=== PATIENT | female | born 1955 | race Caucasian/White ===

== ENCOUNTER → 2017-04-29 | Outpatient (CLI) | payer OTHER ==
--- NOTE | 2017-05-02 08:48 | MM ---
Reason for exam: additional evaluation requested from prior study. Last mammogram was performed 1 year and 1 month ago. History: Patient is postmenopausal and has history of breast cancer at age 59. Family history of breast cancer in daughter at age 43 and breast cancer in aunt. Malignant US biopsy breast VAD LT of the left breast, June 13, 2014. Lumpectomy of the left breast, 2013. Radiation therapy of the left breast, 2013. Physical Findings: Nurse did not find any significant physical abnormalities on exam. MG 3D Diag Mammo W/Cad CELESTINO Bilateral CC and MLO view(s) were taken. Prior study comparison: April 05, 2016, bilateral MG diagnostic mammo w CAD CELESTINO. November 07, 2015, left breast MG 3d diag mammo w/cad LT. There are scattered fibroglandular densities. Left lumpectomy changes. No significant new findings when compared with previous films. These results were verbally communicated with the patient and result sheet given to the patient on 04/29/17. ASSESSMENT: Benign, BI-RAD 2 RECOMMENDATION: Follow-up diagnostic mammogram of both breasts in 1 year.
== END | disposition home or self-care (01) ==
LOC: RADMAMWWP 13:03
PROVIDERS: ATTEND Family Medicine
DX: Z08 Encounter for follow-up examination after completed treatment for malignant neoplasm (principal); Z85.3 Personal history of malignant neoplasm of breast
CPT/HCPCS: G0204; G0279

== ENCOUNTER → 2018-07-12 | Outpatient (CLI) | payer MEDICARE, OTHER ==
--- NOTE | 2018-07-12 14:10 | MM ---
Reason for exam: additional evaluation requested from prior study. Last mammogram was performed 1 year and 2 months ago. History: Patient is postmenopausal and has history of breast cancer at age 59. Family history of breast cancer in daughter at age 43 and breast cancer in aunt. Malignant US biopsy breast VAD LT of the left breast, June 13, 2014. Lumpectomy of the left breast, 2013. Radiation therapy of the left breast, 2013. Physical Findings: Nurse did not find any significant physical abnormalities on exam. MG 3D Diag Mammo W/Cad CELESTINO Bilateral CC and MLO view(s) were taken. Prior study comparison: April 29, 2017, bilateral MG 3d diag mammo w/cad CELESTINO. April 05, 2016, bilateral MG diagnostic mammo w CAD CELESTINO. There are scattered fibroglandular densities. Post surgical and post therapy change left breast. Axillary clips are present. Large lumpectomy scar remains on the left. Some increasing fat necrosis calcifications medially on the left. These results were verbally communicated with the patient and result sheet given to the patient on 07/12/18. ASSESSMENT: Benign, BI-RAD 2 RECOMMENDATION: Follow-up diagnostic mammogram of both breasts in 1 year.
== END ==
LOC: RADMAMWWP 12:43
PROVIDERS: ATTEND Family Medicine
DX: Z08 Encounter for follow-up examination after completed treatment for malignant neoplasm (principal); Z85.3 Personal history of malignant neoplasm of breast
CPT/HCPCS: 77066; G0279; 77062

== ENCOUNTER → 2019-08-15 | Outpatient (CLI) | payer MEDICARE, OTHER ==
--- NOTE | 2019-08-15 13:09 | MM ---
Reason for exam: additional evaluation requested from prior study. Last mammogram was performed 1 year and 1 month ago. History: Patient is postmenopausal and has history of breast cancer at age 59. Family history of breast cancer in daughter at age 43 and breast cancer in aunt. Malignant US biopsy breast VAD LT of the left breast, June 13, 2014. Lumpectomy of the left breast, 2013. Radiation therapy of the left breast, 2013. Physical Findings: Nurse did not find any significant physical abnormalities on exam. MG Diagnostic Mammo w CAD CELESTINO Bilateral CC and MLO view(s) were taken. CC with magnification, ML with magnification, XCCL, and ML view(s) were taken of the left breast. Prior study comparison: July 12, 2018, bilateral MG 3d diag mammo w/cad CELESTINO. April 29, 2017, bilateral MG 3d diag mammo w/cad CELESTINO. There are scattered fibroglandular densities. There is a new 4mm group of calcifications in the upper inner quadrant at middle depth. On magnification views these appear heterogeneout. These do not layer on the lateral. Stereotactic biopsy recommended. Left seroma is smaller than 2015 and is at the post surgical site. These results were verbally communicated with the patient and result sheet given to the patient on 08/15/19. ASSESSMENT: Suspicious, BI-RAD 4 RECOMMENDATION: Stereotactic core biopsy of the left breast. Called Dr. Elliott's office with mammographic findings and has scheduled an appointment for the patient for 09/13/19 at 1:[address] Ramirez. PRELIMINARY REPORT CALLED AND FAXED TO DR. RAMIREZ ON 08/15/19.
== END | disposition home or self-care (01) ==
LOC: RADMAMWWP 10:51
PROVIDERS: ATTEND Family Medicine
DX: Z08 Encounter for follow-up examination after completed treatment for malignant neoplasm (principal); Z85.3 Personal history of malignant neoplasm of breast
CPT/HCPCS: 77066

== ENCOUNTER → 2019-10-11 | Day surgery (SDC) | payer MEDICARE, OTHER ==
[2019-10-11 11:10] VITALS: BP 97/61; PULSE 74; RESP 16; TEMP 97.8
--- NOTE | 2019-10-11 12:17 | MM ---
EXAMINATION TYPE: MG stereo VAD BX LT DATE OF EXAM: 10/11/2019 COMPARISON: Diagnostic left breast mammogram dated 08/15/2019 CLINICAL HISTORY: Indeterminate calcifications in the central outer left breast for which stereotactic guided biopsy was recommended. TECHNIQUE: Stereotactic guided core biopsy of left breast. FINDINGS: The procedure of stereotactic guided core biopsy was explained to the patient. Benefits, alternatives, and risks were discussed. An informed consent was then obtained. Preprocedural timeout was performed. The shortness pathway for biopsy was chosen. Shortness pathway was CC from below approach. Preprocedural localization images were obtained and a 4 mm group of calcifications within the lateral central left breast was demonstrated. Coordinates were calculated. Subsequently 10 cc of lidocaine without epinephrine was utilized to anesthetize the skin and deeper subcutaneous soft tissues. The needle was advanced to the appropriate depth. Prefire images were obtained ensuring appropriate location. Postfire injection of 10 cc of lidocaine with epinephrine was utilized to anesthetize the site of biopsy. A vacuum assisted biopsy gun was used to obtain 10 core samples. The patient tolerated the procedure well without any immediate complication. The patient was kept in the radiology department for short stay after the procedure and then discharged home in stable condition. Targeted calcifications are identified in specimen mammogram. Post biopsy mammogram shows the T-shaped biopsy marker to appear slightly caudal (approximately 1.3 cm marked on the postprocedure LM) relative to the targeted area of concern on the preprocedure images. IMPRESSION: SUCCESSFUL, UNCOMPLICATED STEREOTACTIC GUIDED CORE BIOPSY OF AN INTERMEDIATE SUSPICION A 3 MM GROUP OF CALCULATIONS WITHIN THE LATERAL CENTRAL LEFT BREAST, FULL PATHOLOGY RESULTS TO FOLLOW. Pathology Results: High Risk LEFT BREAST LESION, NEEDLE CORE BIOPSIES: Focal fat necrosis with hemosiderin laden macrophages in a background of fibroadenomatous hyperplasia. Fibrocystic spectrum changes including intraductal papillomatosis. Negative for residual malignant neoplasm. Recommendation Surgical consult of the left breast. Intraductal papillomatosis. MTDD
== END ==
LOC: RADMAMWWP 09:19
PROVIDERS: ATTEND Surgery
DX: D24.2 Benign neoplasm of left breast (principal); N60.12 Diffuse cystic mastopathy of left breast
CPT/HCPCS: 88305; 19081; A4648; J2001

== ENCOUNTER → 2021-03-12 | Outpatient (CLI) | payer MEDICARE, OTHER ==
[2021-03-12 15:04] LABS: Basophils # (A) 0.04 X 10*3/uL (0.00-0.10); Basophils % (A) 0.4 %; Eosinophils # (A) 0.21 X 10*3/uL (0.04-0.35); Eosinophils % (A) 2.3 %; HCT 43.8 % (37.2-46.3); HGB 13.3 g/dL (12.0-15.0); Lymphocytes # (A) 2.08 X 10*3/uL (0.90-5.00); Lymphocytes % (A) 22.9 %; MCH 29.5 pg (27.0-32.0); MCHC 30.4 g/dL (32.0-37.0); MCV 97.1 fL (80.0-97.0); Mean Platelet Volume 11.3 fL (9.5-12.2); Monocytes # (A) 0.61 X 10*3/uL (0.20-1.00); Monocytes % (A) 6.7 %; Neutrophils # (A) 6.09 X 10*3/uL (1.80-7.70); Neutrophils % (A) 67.3 %; Platelet Count 336 X 10*3/uL (140-440); RBC 4.51 X 10*6/uL (4.10-5.20); RDW 13.9 % (11.5-14.5); WBC 9.07 X 10*3/uL (4.50-10.00)
[2021-03-13 16:31] LABS: African American GFR (CKD) 103.2 (60.0-200.0); Albumin 4.2 g/dL (3.80-4.90); Albumin/Globulin Ratio 1.56 (1.60-3.17); Anion Gap 15.3 mmol/L (4.00-12.00); BUN/Creat Ratio 25.71 Ratio (12.00-20.00); Calcium 9.9 mg/dL (8.7-10.3); Carbon Dioxide 19.7 mmol/L (21.6-31.8); Chol/HDL Ratio 2.73; Globulin 2.7 g/dL (1.6-3.3); LDL Cholesterol,Calculated 64.8 mg/dL (0.0-131.0); Total Bilirubin 0.3 mg/dL (0.2-1.2); Total Protein 6.9 g/dL (6.2-8.2); VLDL Calculation 32.2 mg/dL (5.00-40.00)
== END | disposition home or self-care (01) ==
LOC: LABWHC1 09:51
PROVIDERS: ATTEND Family Medicine
DX: E78.2 Mixed hyperlipidemia (principal); G89.29 Other chronic pain; M54.5 Low back pain; Z82.62 Family history of osteoporosis
CPT/HCPCS: 36415; 80053; 80061; 84443; 85025

== ENCOUNTER → 2021-05-20 | Outpatient (CLI) | payer MEDICARE, OTHER ==
--- NOTE | 2021-05-21 08:48 | US ---
EXAMINATION TYPE: US transvaginal DATE OF EXAM: 05/20/2021 COMPARISON: NONE CLINICAL HISTORY: 66-year-old female N95.0 POSTMENOPAUSAL BLEEDING. Pt states 2 episodes of passing c lots approximately 1 month ago/ pt post menopausal, not on HRT's TECHNIQUE: Transvaginal (TV). Transvaginal sonographic images of the pelvis were acquired. Pt did n ot prep to fill bladder, opted to perform transvaginal vs. drinking to fill bladder Date of LMP: age 47 FINDINGS: EXAM MEASUREMENTS: Uterus: 4.5 x 2.5 x 4.0 cm Endometrial Stripe: 0.4 cm 1. Uterus: Retroverted 2. Endometrium: Fluid within canal= 1.6 x 0.5 x 1.7 cm showing irregular borders to endo 3. Right Ovary: Obscured by overlying bowel gas 4. Left Ovary: Obscured by overlying bowel gas 5. Bilateral Adnexa: wnl 6. Posterior cul-de-sac: wnl IMPRESSION: 1. Fluid distending the uterine cavity by up to 1.7 cm. The margins of the endometrium appears somewh at irregular. However, no avinash endometrial thickening is seen. Consider direct inspection or samplin g. 2. Correlate to exclude the possibility of cervical stenosis. 3. Neither ovary could be visualized.
== END | disposition home or self-care (01) ==
LOC: RADUSWWP 15:50
PROVIDERS: ATTEND Obstetrics & Gynecology
DX: N95.0 Postmenopausal bleeding (principal); Z78.0 Asymptomatic menopausal state
CPT/HCPCS: 76830

== ENCOUNTER → 2021-09-07 | Outpatient (CLI) | payer MEDICARE, OTHER ==
--- NOTE | 2021-09-07 08:57 | XR ---
EXAMINATION TYPE: XR foot complete RT DATE OF EXAM: 09/07/2021 COMPARISON: None HISTORY: Foreign body whole glass foot pain second third metatarsal region TECHNIQUE: 3 view right foot FINDINGS: There is a radiopaque foreign body between the first and second distal metatarsals identifi ed on the AP view. No additional radiopaque foreign bodies are evident. No acute fracture or dislocation is evident. Joint spaces appear preserved. Soft tissues are otherwis e unremarkable. IMPRESSION: 1. Radiopaque foreign body between first and second distal metatarsals.
--- NOTE | 2021-09-08 12:08 | MM ---
Reason for exam: screening (asymptomatic). Last mammogram was performed 2 years and 1 month ago. History: Patient is postmenopausal, has history of high-risk lesion on a previous biopsy at age 64, and has history of breast cancer at age 59. Family history of breast cancer in daughter at age 43 and breast cancer in aunt. High risk MG stereo VAD BX LT of the left breast, October 11, 2019. Malignant US biopsy breast VAD LT of the left breast, June 13, 2014. Lumpectomy of the left breast, 2013. Radiation therapy of the left breast, 2013. Took hormonal contraceptives for 4 years. Physical Findings: A clinical breast exam by your physician is recommended on an annual basis and results should be correlated with mammographic findings. MG 3D Screening Mammo W/Cad Bilateral CC and MLO view(s) were taken. Prior study comparison: August 15, 2019, bilateral MG diagnostic mammo w CAD CELESTINO. July 12, 2018, bilateral MG 3d diag mammo w/cad CELESTINO. There are scattered fibroglandular densities. Finding #1: There is stable or decrease in size 30 mm circumscribed architectural distortion in the upper inner quadrant, posterior position of the left breast. Finding #2: There are typically benign round calcifications in both breasts. There is no discrete abnormality. ASSESSMENT: Benign, BI-RAD 2 RECOMMENDATION: Routine screening mammogram of both breasts in 1 year.
== END | disposition home or self-care (01) ==
LOC: RADMAMWWP 07:22
PROVIDERS: ATTEND Internal Medicine
DX: Z12.31 Encounter for screening mammogram for malignant neoplasm of breast (principal); Z80.3 Family history of malignant neoplasm of breast; Z85.3 Personal history of malignant neoplasm of breast; Z78.0 Asymptomatic menopausal state; S91.341A Puncture wound with foreign body, right foot, initial encounter
CPT/HCPCS: 77063; 77067

== ENCOUNTER 2021-10-13 14:47 | Emergency (ER) | payer MEDICARE, OTHER ==
[2021-10-13 15:02] VITALS: RESP 18
--- NOTE | 2021-10-13 15:26 | ED ---
General Adult HPI - General Chief complaint: Arrhythmia/Palpitations Stated complaint: Irregular heart rate-Sent by [facility] Time Seen by Provider: 10/13/21 15:07 Source: patient, RN notes reviewed Mode of arrival: ambulatory Limitations: no limitations - History of Present Illness Initial comments: Patient is a pleasant 66-year-old female presenting to the emergency department with concern for irregular heartbeat. Patient was seen at office and was told she needed to be evaluated possibly for atrial fibrillation. Patient denies any palpitations. Patient denies any chest pain or dyspnea. Patient states this was a routine visit and did not have any complaints and so has no complaints. Patient does take an aspirin daily. - Related Data Home Medications Medication Instructions Recorded Confirmed Hydrocodone/Acetaminophen 1 tab PO QID 10/08/14 10/13/21 [Hydrocodone/Acetaminophen 10-325] Multivitamins, Thera [Multivitamin 1 tab PO DAILY 09/21/19 10/13/21 (formulary)] Simvastatin [Zocor] 20 mg PO DAILY 09/21/19 10/13/21 Aspirin 81 mg PO DAILY 10/13/21 10/13/21 Allergies Allergy/AdvReac Type Severity Reaction Status Date / Time cefaclor [From Ceclor] Allergy Rash/Hives Verified 10/13/21 16:04 doxycycline Allergy Rash/Hives Verified 10/13/21 16:04 doxycycline hyclate Allergy Rash/Hives Verified 10/13/21 16:04 [From Vibra-Tabs] fluconazole [From Diflucan] Allergy Swelling Verified 10/13/21 16:04 Penicillins Allergy Anaphylaxis Verified 10/13/21 16:04 Sulfa (Sulfonamide Allergy Anaphylaxis Verified 10/13/21 16:04 Antibiotics) Review of Systems ROS Statement: Those systems with pertinent positive or pertinent negative responses have been documented in the HPI. ROS Other: All systems not noted in ROS Statement are negative. Constitutional: Denies: fever Eyes: Denies: eye pain ENT: Denies: ear pain Respiratory: Denies: cough Cardiovascular: Denies: chest pain, palpitations Endocrine: Denies: fatigue Gastrointestinal: Denies: abdominal pain Genitourinary: Denies: dysuria Musculoskeletal: Denies: back pain Skin: Denies: rash Neurological: Denies: weakness Past Medical History Past Medical History: Asthma, Cancer, COPD, GERD/Reflux, Hyperlipidemia Additional Past Medical History / Comment(s): LT BREAST CANCER DX JUL 2014? PT STATES HAS HAD 33 RADIATION TXS. HIATAL HERNIA History of Any Multi-Drug Resistant Organisms: None Reported Past Surgical History: Bladder Surgery, Breast Surgery, Cholecystectomy, Hernia Repair, Orthopedic Surgery, Tonsillectomy, Tubal Ligation Additional Past Surgical History / Comment(s): LT BREAST BIOPSY. COLONOSCOPY. EGD. LT FOOT SURGERY. current broken left foot Past Anesthesia/Blood Transfusion Reactions: No Reported Reaction Past Psychological History: Anxiety, Depression Smoking Status: Former smoker Past Alcohol Use History: Rare Past Drug Use History: None Reported - Past Family History Mother Family Medical History: Cancer General Exam Limitations: no limitations General appearance: alert, in no apparent distress Head exam: Present: normocephalic Eye exam: Present: normal appearance Neck exam: Present: normal inspection Respiratory exam: Present: normal lung sounds bilaterally Cardiovascular Exam: Present: regular rate, normal rhythm Expanded Peripheral pulses: 2+: Radial (R), Radial (L) GI/Abdominal exam: Present: soft. Absent: distended, tenderness Extremities exam: Present: normal inspection. Absent: pedal edema, calf tenderness Neurological exam: Present: alert Psychiatric exam: Present: normal affect, normal mood Skin exam: Present: normal color Course Vital Signs 10/13/21 10/13/21 14:58 18:00 Temperature 98.1 F 97.6 F Pulse Rate 56 L 61 Respiratory 18 18 Rate Blood Pressure 113/70 134/79 O2 Sat by Pulse 98 99 Oximetry EKG Findings - EKG Comments: EKG Findings:: Sinus rhythm with a rate of 81. MI 154. QRS 80. QT 368. QTC 427. Left axis. Normal QRS. No acute ST change. Medical Decision Making - Medical Decision Making Patient is frustrated and refuses further care and wants to leave. I did talk with patient. Patient remains in normal sinus rhythm. It is advised to talk to cardiology prior to discharge for potential anticoagulation and follow-up. Despite this patient refuses. Patient states she has been told this previously only when she is at the doctor's office. Patient is made aware that she should see cardiology and should follow-up with her doctor. - Lab Data Result diagrams: 10/13/21 15:30 10/13/21 15:30 Lab Results 10/13/21 10/13/21 10/13/21 Range/Units 15:30 15:30 15:30 WBC 10.2 (3.8-10.6) k/uL RBC 4.27 (3.80-5.40) m/uL Hgb 13.5 (11.4-16.0) gm/dL Hct 41.4 (34.0-46.0) % MCV 97.1 (80.0-100.0) fL MCH 31.7 (25.0-35.0) pg MCHC 32.6 (31.0-37.0) g/dL RDW 13.3 (11.5-15.5) % Plt Count 278 (150-450) k/uL MPV 8.5 Neutrophils % 67 % Lymphocytes % 23 % Monocytes % 6 % Eosinophils % 2 % Basophils % 0 % Neutrophils # 6.9 (1.3-7.7) k/uL Lymphocytes # 2.3 (1.0-4.8) k/uL Monocytes # 0.6 (0-1.0) k/uL Eosinophils # 0.2 (0-0.7) k/uL Basophils # 0.0 (0-0.2) k/uL PT 10.2 (9.0-12.0) sec INR 0.9 (<1.2) APTT 23.9 (22.0-30.0) sec Sodium 141 (137-145) mmol/L Potassium 4.0 (3.5-5.1) mmol/L Chloride 104 (98-107) mmol/L Carbon Dioxide 26 (22-30) mmol/L Anion Gap 11 mmol/L BUN 24 H (7-17) mg/dL Creatinine 0.70 (0.52-1.04) mg/dL Est GFR (CKD-EPI)AfAm >90 (>60 ml/min/1.73 sqM) Est GFR (CKD-EPI)NonAf 89 (>60 ml/min/1.73 sqM) Glucose 102 H (74-99) mg/dL Calcium 9.4 (8.4-10.2) mg/dL Magnesium 1.9 (1.6-2.3) mg/dL Total Bilirubin 0.4 (0.2-1.3) mg/dL AST 26 (14-36) U/L ALT 21 (4-34) U/L Alkaline Phosphatase 124 (38-126) U/L Troponin I (0.000-0.034) ng/mL Total Protein 7.1 (6.3-8.2) g/dL Albumin 3.9 (3.5-5.0) g/dL TSH 1.520 (0.465-4.680) mIU/L Free T4 1.02 (0.78-2.19) ng/dL Free T3 pg/mL 4.7 (2.8-5.3) pg/ml 10/13/21 Range/Units 15:30 WBC (3.8-10.6) k/uL RBC (3.80-5.40) m/uL Hgb (11.4-16.0) gm/dL Hct (34.0-46.0) % MCV (80.0-100.0) fL MCH (25.0-35.0) pg MCHC (31.0-37.0) g/dL RDW (11.5-15.5) % Plt Count (150-450) k/uL MPV Neutrophils % % Lymphocytes % % Monocytes % % Eosinophils % % Basophils % % Neutrophils # (1.3-7.7) k/uL Lymphocytes # (1.0-4.8) k/uL Monocytes # (0-1.0) k/uL Eosinophils # (0-0.7) k/uL Basophils # (0-0.2) k/uL PT (9.0-12.0) sec INR (<1.2) APTT (22.0-30.0) sec Sodium (137-145) mmol/L Potassium (3.5-5.1) mmol/L Chloride (98-107) mmol/L Carbon Dioxide (22-30) mmol/L Anion Gap mmol/L BUN (7-17) mg/dL Creatinine (0.52-1.04) mg/dL Est GFR (CKD-EPI)AfAm (>60 ml/min/1.73 sqM) Est GFR (CKD-EPI)NonAf (>60 ml/min/1.73 sqM) Glucose (74-99) mg/dL Calcium (8.4-10.2) mg/dL Magnesium (1.6-2.3) mg/dL Total Bilirubin (0.2-1.3) mg/dL AST (14-36) U/L ALT (4-34) U/L Alkaline Phosphatase (38-126) U/L Troponin I <0.012 (0.000-0.034) ng/mL Total Protein (6.3-8.2) g/dL Albumin (3.5-5.0) g/dL TSH (0.465-4.680) mIU/L Free T4 (0.78-2.19) ng/dL Free T3 pg/mL (2.8-5.3) pg/ml Disposition Clinical Impression: Dysrhythmia Disposition: Left Against Medical Advice Instructions (If sedation given, give patient instructions): A-fib (Atrial Fibrillation) (ED), Heart Palpitations (ED) Additional Instructions: please follow-up tomorrow with primary care physician and recruiter specialist. You're leaving AGAINST MEDICAL ADVICE. He will need further evaluation and possibly fu rther treatment regarding her treatment. Feel free to return to emergency department for any concerns or worsening symptoms. Is patient prescribed a controlled substance at d/c from ED?: No Referrals: [facility] [Primary Care Provider] - 1-2 days Tremaine Antonio MD [STAFF PHYSICIAN] - 1-2 days Time of Disposition: 18:18
[2021-10-13 15:59] LABS: Basophils % (A) 0 %; Eosinophils # (A) 0.2 k/uL (0-0.7); Eosinophils % (A) 2 %; HCT 41.4 % (34.0-46.0); HGB 13.5 gm/dL (11.4-16.0); Lymphocytes # (A) 2.3 k/uL (1.0-4.8); Lymphocytes % (A) 23 %; MCH 31.7 pg (25.0-35.0); MCHC 32.6 g/dL (31.0-37.0); MCV 97.1 fL (80.0-100.0); Mean Platelet Volume 8.5; Monocytes # (A) 0.6 k/uL (0-1.0); Monocytes % (A) 6 %; Neutrophils # (A) 6.9 k/uL (1.3-7.7); Neutrophils % (A) 67 %; Platelet Count 278 k/uL (150-450); RBC 4.27 m/uL (3.80-5.40); RDW 13.3 % (11.5-15.5); WBC 10.2 k/uL (3.8-10.6)
--- NOTE | 2021-10-13 16:10 | XR ---
EXAMINATION TYPE: XR chest 2V DATE OF EXAM: 10/13/2021 COMPARISON: Chest x-ray 05/03/2011 HISTORY: Dysrhythmia TECHNIQUE: Frontal and lateral views of the chest are obtained. FINDINGS: There is no focal air space opacity, pleural effusion, or pneumothorax seen. The cardiac silhouette size is within normal limits. There are overlying leads. The aorta is dense and tortuous. There is thoracic spondylosis. The osseous structures are intact. IMPRESSION: No acute cardiopulmonary process.
[2021-10-13 16:11] LABS: ALT 21 U/L (4-34); AST 26 U/L (14-36); African American GFR (CKD) >90 (>60 ml/min/1.73 sqM); Albumin 3.9 g/dL (3.5-5.0); Alkaline Phosphatase 124 U/L (38-126); Anion Gap 11 mmol/L; Blood Urea Nitrogen 24 mg/dL (7-17); Calcium 9.4 mg/dL (8.4-10.2); Carbon Dioxide 26 mmol/L (22-30); Chloride 104 mmol/L (98-107); Glucose 102 mg/dL (74-99); Magnesium 1.9 mg/dL (1.6-2.3); Non-African American GFR(CKD) 89 (>60 ml/min/1.73 sqM); Sodium 141 mmol/L (137-145); Total Bilirubin 0.4 mg/dL (0.2-1.3); Total Protein 7.1 g/dL (6.3-8.2)
[2021-10-13 16:15] LABS: INR 0.9 (<1.2); Partial Thromboplastin Time 23.9 sec (22.0-30.0); Prothrombin Time 10.2 sec (9.0-12.0)
[2021-10-13 16:28] LABS: T4, Free (Free Thyroxine) 1.02 ng/dL (0.78-2.19)
[2021-10-13] MEDS ORDERED: HYDROcodone/APAP 10-325MG 1 EACH TAB PO ONE (18:03)
[2021-10-13 18:15] VITALS: BP 134/79; PULSE 61; TEMP 97.6
== END 2021-10-13 18:36 | disposition left against medical advice (07) ==
LOC: EC 14:47
DX: I49.9 Cardiac arrhythmia, unspecified (principal); J44.9 Chronic obstructive pulmonary disease, unspecified; K21.9 Gastro-esophageal reflux disease without esophagitis; E78.5 Hyperlipidemia, unspecified; F41.9 Anxiety disorder, unspecified; F32.A Depression, unspecified; Z79.82 Long term (current) use of aspirin; Z88.0 Allergy status to penicillin; Z88.1 Allergy status to other antibiotic agents; Z88.2 Allergy status to sulfonamides; Z85.3 Personal history of malignant neoplasm of breast; Z90.49 Acquired absence of other specified parts of digestive tract; Z98.51 Tubal ligation status; Z87.891 Personal history of nicotine dependence
CPT/HCPCS: 36415; 71046; 80053; 83735; 84439; 84443; 84481; 84484; 85025; 85610; 85730; 93005; 99284

== ENCOUNTER → 2022-08-31 | Outpatient (CLI) | payer MEDICARE, OTHER ==
--- NOTE | 2022-09-01 07:47 | MM ---
Reason for Exam: Screening (asymptomatic). Last screening mammogram was performed 12 month(s) ago. Patient History: Menarche at age 10. First Full-Term at age 15. Postmenopausal. Breast cancer, left, age 59. Patient used Hormonal Contraceptives for 4 years. 2013, Lumpectomy on the Left side. 10/11/2019, High risk Core Biopsy on the left side. 06/13/2014, Malignant Core Biopsy on the left side. 2013, Radiation Therapy on the left side. Maternal aunt had breast cancer. Daughter had breast cancer, age 43. Prior Study Comparison: 07/12/2018 Bilateral Diagnostic Mammogram, [facility]. 08/15/2019 Bilateral Diagnostic Mammogram, [facility]. 09/07/2021 Bilateral Screening Mammogram, [facility]. Tissue Density: There are scattered fibroglandular densities. Findings: Analyzed By CAD. There is no suspicious group of microcalcifications or new suspicious mass in either breast. Postoperative changes left breast with probable postoperative seroma. Overall Assessment: Benign, BI-RAD 2 Management: Screening Mammogram of both breasts in 1 year. A clinical breast exam by your physician is recommended on an annual basis and results should be correlated with mammographic findings. Electronically signed and approved by: Santino Tanner M.D. Radiologis
== END | disposition home or self-care (01) ==
LOC: RADMAMWWP 11:07
PROVIDERS: ATTEND Internal Medicine
DX: Z12.31 Encounter for screening mammogram for malignant neoplasm of breast (principal); Z78.0 Asymptomatic menopausal state; Z80.3 Family history of malignant neoplasm of breast
CPT/HCPCS: 77063; 77067

== ENCOUNTER 2022-10-11 03:38 | Emergency (ER) | payer MEDICARE, OTHER ==
[2022-10-11 03:48] VITALS: RESP 15; TEMP 98.1
[2022-10-11 04:52] LABS: Basophils % (A) 0 %; Eosinophils # (A) 0.3 k/uL (0-0.7); Eosinophils % (A) 3 %; HCT 44.3 % (34.0-46.0); HGB 14.6 gm/dL (11.4-16.0); Lymphocytes # (A) 1.9 k/uL (1.0-4.8); Lymphocytes % (A) 22 %; MCH 31.4 pg (25.0-35.0); MCHC 32.9 g/dL (31.0-37.0); MCV 95.5 fL (80.0-100.0); Monocytes # (A) 0.6 k/uL (0-1.0); Monocytes % (A) 7 %; Neutrophils # (A) 5.8 k/uL (1.3-7.7); Neutrophils % (A) 67 %; Platelet Count 234 k/uL (150-450); RBC 4.64 m/uL (3.80-5.40); RDW 12.9 % (11.5-15.5); WBC 8.7 k/uL (3.8-10.6)
--- NOTE | 2022-10-11 04:57 | XR ---
EXAMINATION TYPE: XR chest 2V DATE OF EXAM: 10/11/2022 COMPARISON: 10/13/2021 HISTORY: Dysrhythmia. Chest pain FINDINGS: Heart is normal. Lungs are clear of consolidation. There are no hilar masses. No heart fail ure. Bony thorax is intact. There are chest leads. IMPRESSION: No active cardiopulmonary disease. No change.
[2022-10-11 05:01] LABS: ALT 19 U/L (4-34); AST 25 U/L (14-36); African American GFR (CKD) >90 (>60 ml/min/1.73 sqM); Albumin 4.3 g/dL (3.5-5.0); Alkaline Phosphatase 111 U/L (38-126); Anion Gap 8 mmol/L; Blood Urea Nitrogen 23 mg/dL (7-17); Calcium 9.5 mg/dL (8.4-10.2); Carbon Dioxide 28 mmol/L (22-30); Chloride 105 mmol/L (98-107); Glucose 115 mg/dL (74-99); Non-African American GFR(CKD) 78 (>60 ml/min/1.73 sqM); Sodium 141 mmol/L (137-145); Total Bilirubin 0.5 mg/dL (0.2-1.3); Total Protein 7.1 g/dL (6.3-8.2)
[2022-10-11 05:03] LABS: Partial Thromboplastin Time 22.8 sec (22.0-30.0); Prothrombin Time 10.3 sec (9.0-12.0)
--- NOTE | 2022-10-11 05:10 | ED ---
Chest Pain HPI - General Chief Complaint: Chest Pain Stated Complaint: Chest pain Time Seen by Provider: 10/11/22 05:04 Source: EMS, RN notes reviewed, old records reviewed Mode of arrival: EMS Limitations: no limitations - History of Present Illness Initial Comments: This is a 67-year-old female to the emergency department for evaluation patient has history of underlying breast cancer coming in for evaluation of chest pain today. Patient admits to some significant current distress states her furnace went out and she is becoming homeless tomorrow. These issues are related to ongoing female with her landlord. Patient states she is very stressed MD Complaint: chest pain Onset: during rest Pain Location: substernal Pain Radiation: none Severity: mild Severity scale (1-10): 1 Quality: tightness Consistency: intermittent, now resolved Improves With: nothing Worsens With: nothing Anginal Symptoms: sense of impending doom Other Symptoms: palpitations Treatments Prior to Arrival: none - Related Data Home Medications Medication Instructions Recorded Confirmed Hydrocodone/Acetaminophen 1 tab PO QID 10/08/14 10/13/21 [Hydrocodone/Acetaminophen 10-325] Multivitamins, Thera [Multivitamin 1 tab PO DAILY 09/21/19 10/13/21 (formulary)] Simvastatin [Zocor] 20 mg PO DAILY 09/21/19 10/13/21 Aspirin 81 mg PO DAILY 10/13/21 10/13/21 Allergies Allergy/AdvReac Type Severity Reaction Status Date / Time cefaclor [From Ceclor] Allergy Rash/Hives Verified 10/11/22 03:44 doxycycline Allergy Rash/Hives Verified 10/11/22 03:44 doxycycline hyclate Allergy Rash/Hives Verified 10/11/22 03:44 [From Vibra-Tabs] fluconazole [From Diflucan] Allergy Swelling Verified 10/11/22 03:44 Penicillins Allergy Anaphylaxis Verified 10/11/22 03:44 Sulfa (Sulfonamide Allergy Anaphylaxis Verified 10/11/22 03:44 Antibiotics) Review of Systems ROS Statement: Those systems with pertinent positive or pertinent negative responses have been documented in the HPI. ROS Other: All systems not noted in ROS Statement are negative. EKG Findings - EKG Comments: EKG Findings:: EKG interpreted by me as sinus 85 NJ 155 QRS 89 QTC 394 Past Medical History Past Medical History: Asthma, Cancer, COPD, GERD/Reflux, Hyperlipidemia Additional Past Medical History / Comment(s): LT BREAST CANCER DX JUL 2014? PT STATES HAS HAD 33 RADIATION TXS. HIATAL HERNIA History of Any Multi-Drug Resistant Organisms: None Reported Past Surgical History: Bladder Surgery, Breast Surgery, Cholecystectomy, Hernia Repair, Orthopedic Surgery, Tonsillectomy, Tubal Ligation Additional Past Surgical History / Comment(s): LT BREAST BIOPSY. COLONOSCOPY. EGD. LT FOOT SURGERY. current broken left foot Past Anesthesia/Blood Transfusion Reactions: No Reported Reaction Past Psychological History: Anxiety, Depression Smoking Status: Former smoker Past Alcohol Use History: Rare Past Drug Use History: None Reported - Past Family History Mother Family Medical History: Cancer General Exam Limitations: no limitations General appearance: alert, in no apparent distress Head exam: Present: atraumatic, normocephalic, normal inspection Eye exam: Present: normal appearance, PERRL, EOMI. Absent: scleral icterus, conjunctival injection, periorbital swelling ENT exam: Present: normal exam, mucous membranes moist Neck exam: Present: normal inspection. Absent: tenderness, meningismus, lymphadenopathy Respiratory exam: Present: normal lung sounds bilaterally. Absent: respiratory distress, wheezes, rales, rhonchi, stridor Cardiovascular Exam: Present: regular rate, normal rhythm, normal heart sounds. Absent: systolic murmur, diastolic murmur, rubs, gallop, clicks GI/Abdominal exam: Present: soft, normal bowel sounds. Absent: distended, tenderness, guarding, rebound, rigid Extremities exam: Present: normal inspection, full ROM, normal capillary refill. Absent: tenderness, pedal edema, joint swelling, calf tenderness Back exam: Present: normal inspection Neurological exam: Present: alert, oriented X3, CN II-XII intact Psychiatric exam: Present: normal affect, normal mood Skin exam: Present: warm, dry, intact, normal color. Absent: rash Course Vital Signs 10/11/22 10/11/22 03:44 06:09 Temperature 98.1 F Pulse Rate 88 71 Respiratory 15 15 Rate Blood Pressure 151/78 128/78 O2 Sat by Pulse 100 100 Oximetry - Reevaluation(s) Reevaluation #1: 10/11/22 Medical record is reviewed Reevaluation #2: 10/11/22 Patient symptoms are resolved here in the ER Reevaluation #3: 01/02/23 Patient informed of results and questions answered Reevaluation #4: 10/11/22 05:23 Differential Chest Pain: Stable Angina, Unstable Angina, STEMI, NSTEMI Aortic Dissection, Pneumothorax, Musculoskeletal, Esophageal Spasm GERD, Cholecystitis, Pancreatitis, Zoster, this is not meant to be an all-inclusive list. Reevaluation #5: 10/11/22 05:23 Was pt. sent in by a medical professional or institution? @ -[by , ALICIA, NURSING PROFESSOR, urgent care, hospital, or fdc] Did you speak to anyone other than the patient for history? @ -[EMS, parent, family, police, friend?] Did you review nursing and triage notes? @ -[agree or disagree, why?] Were old charts reviewed? @ -[outside hosp., previous admissions, EMS record, old EKG, old radiological studies, urgent care reports/EKGs, fdc records?] Differential Diagnosis? @ -[chest pain, altered mental status abdominal pain women, abdominal pain men, vaginal bleeding, weakness, fever, dyspnea, syncope, headache, dizziness, GI bleed, back pain, seizure] EKG interpreted by me (3pts min.)? @ -[none] X-rays interpreted by me (1pt min.)? @ -[none] CT interpreted by me (1pt min.)? @ -[none] U/S interpreted by me (1pt. min.)? @ -[none] What testing was considered but not performed? (CT, X-rays, U/S, labs)? Why? @ [CT, X-rays, U/S, labs? Why?] What meds were considered but not given? Why? @ -[none] Did you discuss the management of the patient with other professionals? @ -[professionals i.e. ALICIA Malik, NURSING PROFESSOR, Lab, RT, Psych Nurse, Senior Counsel Commercial, Mergers And Acquisitions Associate, Teacher, Sand [employer] Gravel Plant Operator, manager of case? Give summary] Did you reconcile home meds? @ -[none] Was smoking cessation discussed for >3mins.? @ -[none] Was critical care preformed (if so, how long)? @ -[none] Were there social determinants of health that impacted care today? How? (Homelessness, low income, unemployed, alcoholism, drug addiction, transportation, low edu. Level, literacy, decrease access to med. care, fpc, rehab)? @ -[Homelessness, low income, unemployed, alcoholism, drug addiction, transportation, low edu. Level, literacy, decrease access to med. care, fpc, rehab?] Was there de-escalation of care discussed even if they declined? (Discuss DNR or withdrawal of care, Hospice)? @ -[Discuss DNR or withdrawal of care, Hospice?] What co-morbidities impacted this encounter? (DM, HTN, Smoking, COPD, CAD, Ca ncer, CVA, Hep., AIDS, mental health diagnosis, sleep apnea, morbid obesity)? @ -[DM, HTN, Smoking, COPD, CAD, Cancer, CVA, Hep., AIDS, mental health diagnosis, sleep apnea, morbid obesity?] Was patient admitted / discharged? @ -[hospital course] Undiagnosed new problem with uncertain prognosis? @ -[none] Drug Therapy requiring intensive monitoring for toxicity (Heparin, Nitro, Insulin, Cardizem)? @ -[none] Were any procedures done? @ -[none] Diagnosis/symptom? @ -[default] Acute, or Chronic, or Acute on Chronic? @ -[default] Uncomplicated (without systemic symptoms) or Complicated (systemic symptoms)? @ -[default] Side effects of treatment? @ -[none] Exacerbation, Progression, or Severe Exacerbation] @ -[no] Poses a threat to life or bodily function? @ -[no] Chest Pain MDM - MDM 67 female coming in with history of breast cancer feels improved here in the ER chest pain is resolved patient is in no distress with like discharge home Disposition Clinical Impression: Anxiety, Chest pain, Breast CA Disposition: HOME SELF-CARE Condition: Fair Instructions (If sedation given, give patient instructions): Chest Pain (ED) Is patient prescribed a controlled substance at d/c from ED?: No Referrals: [facility] [Primary Care Provider] - 1-2 days Time of Disposition: 05:30
[2022-10-11 06:10] VITALS: BP 128/78; PULSE 71
== END 2022-10-11 06:10 | disposition home or self-care (01) ==
LOC: EC 03:38 → SUPCPDRO 03:38 → EC 06:10
DX: R07.9 Chest pain, unspecified (principal); F41.9 Anxiety disorder, unspecified; D09.9 Carcinoma in situ, unspecified; J44.9 Chronic obstructive pulmonary disease, unspecified; E78.5 Hyperlipidemia, unspecified; F32.A Depression, unspecified; Z87.891 Personal history of nicotine dependence; Z88.1 Allergy status to other antibiotic agents; Z88.0 Allergy status to penicillin; Z88.2 Allergy status to sulfonamides; Z79.82 Long term (current) use of aspirin; Z79.899 Other long term (current) drug therapy
CPT/HCPCS: 36415; 71046; 80053; 83735; 84484; 85025; 85610; 85730; 99285

== ENCOUNTER → 2023-09-29 | Outpatient (CLI) | payer MEDICARE, OTHER ==
--- NOTE | 2023-09-29 10:20 | CTL ---
EXAMINATION TYPE: CT Low Dose Lung DATE OF EXAM ORDERED: 09/29/2023 HISTORY: Tobacco use.. Lung cancer screening CT DLP: [address] CTDI: 2.8 mGy Automated exposure control for dose reduction was used. SCREENING VISIT: COMPARISON: TECHNIQUE: Low dose computed tomography scan was performed through the chest at 1 mm thick sections a nd reconstructed images in multiple planes at 1 mm and [address] DIAGNOSTIC QUALITY: Satisfactory FINDINGS: LUNG NODULES: None. LUNGS: COPD: Severity: There is mild upper lobe predominant centrilobular and paraseptal emphysema. Mild inf lammatory airway changes are seen diffusely. Fibrosis: Severity: Scattered subpleural areas of reticulation throughout the lungs bilaterally which is likely chronic. Lymph nodes: No adenopathy. Other findings: RIGHT PLEURAL SPACE: Effusion: None Calcification: None Thickening: None Pneumothorax: None LEFT PLEURAL SPACE: Effusion: None Calcification: None Thickening: None Pneumothorax: None HEART: Heart Size: Normal Coronary Calcification: Moderate coronary calcification is seen in the left anterior descending. Pericardial Effusion: None OTHER FINDINGS: Upper abdomen: None Bony thorax: None Supraclavicular region: None Other: Right lower lobe pulmonary nodule measuring 7.3 mm on series 4 image 167. There is a right mid dle lobe pleural-based nodule measuring 6.4 mm on series 4 image 182. There is a 5.3 mm nodule in the left lower lobe on series 4 image 155. Likely cystic structure within the left medial breast that me asures approximately 2.7 cm in diameter. IMPRESSION: 1. Small pulmonary nodules as above. Follow-up in 6 months is recommended. 2. Emphysema. 3. Coronary artery calcifications as above. CT LUNG RAD AND CT CHEST RECOMMENDATION: Lung-Rad 3 Probably Benign: 6 month follow-up LDCT.
== END | disposition home or self-care (01) ==
LOC: RADCTMAIN 09:16
PROVIDERS: ATTEND Internal Medicine
DX: Z12.2 Encounter for screening for malignant neoplasm of respiratory organs (principal); I25.10 Atherosclerotic heart disease of native coronary artery without angina pectoris; J43.2 Centrilobular emphysema; R91.8 Other nonspecific abnormal finding of lung field; Z87.891 Personal history of nicotine dependence
CPT/HCPCS: 71271

== ENCOUNTER → 2023-10-19 | Day surgery (SDC) | payer MEDICARE, OTHER ==
[~2023-10-19] MED LIST: ACETAMINOPHEN TAB 500 MG TAB PO PRN; ALPRAZolam 0.25 MG TAB ONE; DEXAMETHASONE SOD PHOSPHATE 4 MG/ML 1 ML VIAL IV ONE; HEPARIN SODIUM,PORCINE 5,000 UNIT/ML 1 ML VIAL SQ PRN; HYDROcodone/APAP 10-325MG 1 EACH TAB ONE; HYDROcodone/APAP 10-325MG 1 EACH TAB PO ONE; HYDROmorphone (PF) 1 MG/ML ONE; HYDROmorphone 0.5 MG/0.5 ML SYRINGE IVP PRN; LACTATED RINGERS 1,000 ML IV SCH; LIDOCAINE 0.5%-EPI 1:200,000 50 ML VIAL SQ ONE; LIDOCAINE 1% (10MG/ML) FOR IV START INTRADERMA PRN; LIDOCAINE 1% INJ 10MG/ML (20 ML MDV) ONE; LIDOCAINE 1% INJ 10MG/ML (20 ML MDV) SQ ONE; MIDAZOLAM 2 MG/2 ML VIAL ONE; ONDANSETRON 4 MG/2 ML VIAL IVP ONE; PROPOFOL 10 MG/ML 20 ML VIAL IV ONE; SUCCINYLCHOLINE CHLORIDE 200 MG/10 ML VIAL IV ONE; droPERidol 5 MG/2 ML VIAL IVP ONE; fentaNYL (PF) 50 MCG/ML 2 ML AMP ONE
[2023-10-19 10:41] VITALS: RESP 16
--- NOTE | 2023-10-19 13:08 | P.OP ---
Date of Procedure: 10/19/23 Preoperative Diagnosis: Abnormal left mammogram Postoperative Diagnosis: Same Procedure(s) Performed: Left breast biopsy with needle localization Anesthesia: AIXA Surgeon: Alex Jaffe Estimated Blood Loss (ml): 10 Pathology: other (Left breast biopsy) Condition: stable Disposition: PACU Description of Procedure: Patient's placed on the operative table in the supine position. She received general and itching tube anesthesia. Her chest was prepped and draped usual fashion. The patient and previously needle localized by radiology. A skin incision was made at the needle entrance site of the left breast. And then using blunt sharp dissection with cautery core tissue was taken around the needle. The specimen sent to mammography. The specimen was can firmed within the lesion. The was retrieved cyst. Skin was closed interrupted 3-0 Monocryl suture. The biopsy cavity had clips placed prior to skin closure. Patient top she will. She sent to recovery room in stable condition.
[2023-10-19 13:26] VITALS: TEMP 97.5
[2023-10-19 15:50] VITALS: BP 114/72; PULSE 68
--- NOTE | 2023-10-26 14:14 | MM ---
Pathology Description: Location: posterior. Approach: Medial to Lateral Needle Type: 9 cm [place] VERY POSTERIOR...CALCS The needle localization procedure with wire placement for surgical excision was explained to the patient. Benefits, alternatives, and risks were discussed. An informed consent was then obtained. A timeout was performed. The overlying skin was prepped in usual sterile fashion. Lidocaine was used as anesthetic into the skin and subcutaneous tissue up to the level of area of concern. A 9 cm needle was used. It was placed using a medial approach under mammographic guidance. Subsequent 90 degrees mammogram show the needle to be in satisfactory position relative to the targeted area. The wire was placed and the needle was withdrawn. The wire was fixed to patient's skin. Images were marked for surgeon. The patient tolerated the procedure well. The patient was kept in the radiology department for short stay after the procedure and then taken to surgery for surgical excision. Specimen: Calcifications and wire are identified in specimen mammogram. Impression: 1. Successful needle localization with wire placement and surgical excision of breast calcifications. Pathology Results: Result: Benign, Fibrocystic change. LEFT BREAST TISSUE, EXCISION: Benign breast tissue with fibrous scar, fat necrosis, focal calcification, and fibrocystic change. Benign skeletal muscle. Overall Assessment: Benign Management: Diagnostic Mammogram of the left breast in 6 months. Electronically signed and approved by: Akash Bentley D.O. Radiologis
== END | disposition home or self-care (01) ==
LOC: OR 09:27
PROVIDERS: ATTEND Surgery
DX: N60.12 Diffuse cystic mastopathy of left breast (principal); R92.8 Other abnormal and inconclusive findings on diagnostic imaging of breast; J44.9 Chronic obstructive pulmonary disease, unspecified; K21.9 Gastro-esophageal reflux disease without esophagitis; E78.5 Hyperlipidemia, unspecified; F41.9 Anxiety disorder, unspecified; F32.A Depression, unspecified; Z87.891 Personal history of nicotine dependence; Z79.899 Other long term (current) drug therapy; Z88.0 Allergy status to penicillin; Z88.2 Allergy status to sulfonamides; Z88.8 Allergy status to other drugs, medicaments and biological substances; Z98.51 Tubal ligation status; Z90.49 Acquired absence of other specified parts of digestive tract; Z98.890 Other specified postprocedural states; Z85.3 Personal history of malignant neoplasm of breast
CPT/HCPCS: 88307; 76098; 19281; C1819; J2250; J0330; J1644; J1100; J0690; J2405; J2001; J3010; J1170 ×2; J2704

== ENCOUNTER 2023-11-26 17:41 | Emergency (ER) | payer MEDICARE, OTHER ==
[2023-11-26 17:53] VITALS: PULSE 95; RESP 20; TEMP 98.3
--- NOTE | 2023-11-26 18:08 | ED ---
Skin/Abscess/FB HPI - General Chief complaint: Skin/Abscess/Foreign Body Stated complaint: Hemorrhage Time Seen by Provider: 11/26/23 17:49 Source: patient, EMS, RN notes reviewed, old records reviewed Mode of arrival: EMS Limitations: no limitations - History of Present Illness Initial comments: This is a 68-year-old female to ER for evaluation of surgical site drainage. Patient has some clear fluid draining from her left breast with recent surgical history of the left breast. Patient has no other complaints no significant pain no weakness lightheadedness or dizziness, no blood thinners. Patient is just concerned for amount of fluid draining from left breast MD complaint: other (Fluid drainage from left breast) -: hour(s) Severity: mild Consistency: constant Improves with: none Worsens with: none Context: none Associated symptoms: denies other symptoms - Related Data Home Medications Medication Instructions Recorded Confirmed Hydrocodone/Acetaminophen 1 tab PO QID 10/08/14 10/19/23 [Hydrocodone/Acetaminophen 10-325] Multivitamins, Thera [Multivitamin 1 tab PO QAM 09/21/19 10/19/23 (formulary)] Simvastatin [Zocor] 20 mg PO QAM 09/21/19 10/19/23 Aspirin 81 mg PO QAM 10/13/21 10/19/23 Ubidecarenone [Co Q-10] 400 mg PO QAM 10/12/23 10/19/23 hydroCHLOROthiazide 12.5 mg PO DAILY 10/19/23 10/19/23 Previous Rx's Medication Instructions Recorded Acetaminophen Tab [Tylenol] 650 mg PO Q6H #30 tab 10/19/23 Docusate [Colace] 100 mg PO BID #20 capsule 10/19/23 Ibuprofen [Motrin] 600 mg PO Q6HR PRN #40 tab 10/19/23 oxyCODONE HCL [OxyIR] 5 mg PO Q6H PRN 3 Days #10 tab 10/19/23 Allergies Allergy/AdvReac Type Severity Reaction Status Date / Time cefaclor [From Ceclor] Allergy Severe Rash/Hives Verified 11/26/23 17:51 doxycycline Allergy Severe Rash/Hives Verified 11/26/23 17:51 doxycycline hyclate Allergy Severe Rash/Hives Verified 11/26/23 17:51 [From Vibra-Tabs] fluconazole [From Diflucan] Allergy Severe Swelling Verified 11/26/23 17:51 Penicillins Allergy Severe Anaphylaxis Verified 11/26/23 17:51 Sulfa (Sulfonamide Allergy Severe Anaphylaxis Verified 11/26/23 17:51 Antibiotics) Review of Systems ROS Statement: Those systems with pertinent positive or pertinent negative responses have been documented in the HPI. ROS Other: All systems not noted in ROS Statement are negative. Past Medical History Past Medical History: Asthma, Cancer, COPD, GERD/Reflux, Hyperlipidemia Additional Past Medical History / Comment(s): LT BREAST CANCER DX JUL 2014? PT STATES HAS HAD 33 RADIATION TXS, leaky cardiac valves. History of Any Multi-Drug Resistant Organisms: None Reported Past Surgical History: Bladder Surgery, Breast Surgery, Hernia Repair, Tonsillectomy, Tubal Ligation Additional Past Surgical History / Comment(s): LT BREAST BIOPSY/lumpectomy, COLONOSCOPY,EGD Past Anesthesia/Blood Transfusion Reactions: No Reported Reaction Past Psychological History: Anxiety, Depression Smoking Status: Former smoker - Past Family History Mother Family Medical History: Cancer General Exam - General Exam Comments Initial Comments: Patient does have serosanguineous fluid draining from pinpoint stoma to left breast General appearance: alert, in no apparent distress Head exam: Present: atraumatic, normocephalic, normal inspection Eye exam: Present: normal appearance, PERRL, EOMI. Absent: scleral icterus, conjunctival injection, periorbital swelling ENT exam: Present: normal exam, mucous membranes moist Neck exam: Present: normal inspection. Absent: tenderness, meningismus, lymphadenopathy Respiratory exam: Present: normal lung sounds bilaterally. Absent: respiratory distress, wheezes, rales, rhonchi, stridor Cardiovascular Exam: Present: regular rate, normal rhythm, normal heart sounds. Absent: systolic murmur, diastolic murmur, rubs, gallop, clicks GI/Abdominal exam: Present: soft, normal bowel sounds. Absent: distended, tenderness, guarding, rebound, rigid Extremities exam: Present: normal inspection, full ROM, normal capillary refill. Absent: tenderness, pedal edema, joint swelling, calf tenderness Back exam: Present: normal inspection Neurological exam: Present: alert, oriented X3, CN II-XII intact Psychiatric exam: Present: normal affect, normal mood Skin exam: Present: warm, dry, intact, normal color. Absent: rash Course Vital Signs 11/26/23 11/26/23 17:45 18:22 Temperature 98.3 F Pulse Rate 95 Respiratory 20 Rate Blood Pressure 138/105 126/92 O2 Sat by Pulse 98 Oximetry - Reevaluation(s) Reevaluation #1: Medical records reviewed Reevaluation #2: Patient symptoms unchanged Reevaluation #3: Patient informed of results and questions answered Reevaluation #4: Was pt. sent in by a medical professional or institution (, ALICIA, SEWING MACHINE ASSEMBLER, urgent care, hospital, or correction...) When possible be specific @ -no Did you speak to anyone other than the patient for history (EMS, parent, family, police, friend...)? What history was obtained from this source @ -no Did you review nursing and triage notes (agree or disagree)? Why? @ -agree Are old charts reviewed (outside hosp., previous admission, EMS record, old EKG, old radiological studies, urgent care reports/EKG's, correction records)? Report findings @ -yes Differential Diagnosis (chest pain, altered mental status, abdominal pain women, abdominal pain men, vaginal bleeding, weakness, fever, dyspnea, syncope, headache, dizziness, GI bleed, back pain, seizure, CVA, palpatations, mental health, musculoskeletal)? @ -prior EKG interpreted by me (3pts min.). @ -no X-rays interpreted by me (1pt min.). @ -no CT interpreted by me (1pt min.). @ -no U/S interpreted by me (1pt. min.). @ -no What testing was considered but not performed or refused? (CT, X-rays, U/S, labs)? Why? @ -none What meds were considered but not given or refused? Why? @ -none Did you discuss the management of the patient with other professionals (professionals i.e. ALICIA Fam, SEWING MACHINE ASSEMBLER, lab, RT, psych nurse, social media developer, debeaker, teacher, transit authority police officer, upper caser)? Give summary @ -no Was smoking cessation discussed for >3mins.? @ -no Was critical care preformed (if so, how long)? @ -no Were there social determinants of health that impacted care today? How? (Homelessness, low income, unemployed, alcoholism, drug addiction, transportation, low edu. Level, literacy, decrease access to med. care, alf, rehab)? @ -none Was there de-escalation of care discussed even if they declined (Discuss DNR or withdrawal of care, Hospice)? DNR status @ -no What co-morbidities impacted this encounter? (DM, HTN, Smoking, COPD, CAD, Cancer, CVA, ARF, Chemo, Hep., AIDS, mental health diagnosis, sleep apnea, morbid obesity)? @ -none Was patient admitted / discharged? Hospital course, mention meds given and route, prescriptions, significant lab abnormalities, going to OR and other pertinent info. @ -68-year-old female to the ER for evaluation of drainage from left breast, this is a postoperative complication with serosanguineous drainage with no acute disease or signs of infection. Patient can be discharged home Discharge Undiagnosed new problem with uncertain prognosis? @ -no Drug Therapy requiring intensive monitoring for toxicity (Heparin, Nitro, Insulin, Cardizem)? @ -no Were any procedures done? @ -no Diagnosis/symptom? @ -Left breast wound care draining serosanguineous fluid Acute, or Chronic, or Acute on Chronic? @ -Acute Uncomplicated (without systemic symptoms) or Complicated (systemic symptoms)? @ -Complicated Side effects of treatment? @ -no Exacerbation, Progression, or Severe Exacerbation? @ -exacerbation Poses a threat to life or bodily function? How? (Chest pain, [place], PA, pneumonia, PE, COPD, DKA, ARF, appy, cholecystitis, CVA, Diverticulitis, Homicidal, Suicidal, threat to staff... and all critical care pts) @ -yes possible postop infection Medical Decision Making - Medical Decision Making 68-year-old female to the ER for evaluation of drainage from left breast, this is a postoperative complication with serosanguineous drainage with no acute disease or signs of infection. Patient can be discharged home Disposition Clinical Impression: Encounter for wound re-check Disposition: HOME SELF-CARE Condition: Good Instructions (If sedation given, give patient instructions): Acute Wound Care (ED), Chronic Wound Care (ED) Is patient prescribed a controlled substance at d/c from ED?: No Referrals: Billie Sanchez MD [Primary Care Provider] - 1-2 days Alex Jaffe MD [STAFF PHYSICIAN] - 1-2 days
[2023-11-26 18:47] VITALS: BP 126/92
== END 2023-11-26 18:23 | disposition home or self-care (01) ==
LOC: EC 17:41
DX: Z48.01 Encounter for change or removal of surgical wound dressing (principal); J44.89 Other specified chronic obstructive pulmonary disease; E78.5 Hyperlipidemia, unspecified; F41.9 Anxiety disorder, unspecified; F32.A Depression, unspecified; Z87.891 Personal history of nicotine dependence; Z79.899 Other long term (current) drug therapy; Z88.0 Allergy status to penicillin; Z88.1 Allergy status to other antibiotic agents; Z88.2 Allergy status to sulfonamides; Z88.3 Allergy status to other anti-infective agents; Z88.8 Allergy status to other drugs, medicaments and biological substances
CPT/HCPCS: 99284

== ENCOUNTER 2025-01-09 07:54 | Day surgery (SDC) | payer MEDICARE, OTHER ==
[2025-01-09] MEDS: IV FLUID CONTINUATION 1,000 ML IV ONE (08:11)
[2025-01-09 08:38] VITALS: RESP 16; TEMP 97
[2025-01-09] MEDS: LACTATED RINGERS 1,000 ML IV SCH (08:44)
[2025-01-09] MEDS ORDERED: LIDOCAINE 1% INJ 10MG/ML (20 ML MDV) ONE (08:49)
[2025-01-09] MEDS ORDERED: PROPOFOL 10 MG/ML 20 ML VIAL IV ONE (08:49)
--- NOTE | 2025-01-09 09:14 | P.PCN ---
Date of Procedure: 01/09/25 Procedure(s) Performed: Brief history: Patient is a pleasant scheduled for an elective upper endoscopy as well as colonoscopy as a part of evaluation of progressive dysphagia to solids, weight loss of 60 pounds for the last 6 months duration and screening for colon cancer Procedure performed: Esophagogastroduodenoscopy with biopsy and dilation Colonoscopy Preoperative diagnosis: Progressive dysphagia to solids and weight loss Screening for colon cancer Anesthesia: MAC Procedure: After informed consent was obtained from the patient was brought into the endoscopy unit and IV sedation was administered by anesthesia under continuous monitoring. Initially upper endoscopy was done. The Olympus GF 160 video endoscope was inserted inserted into the mouth and esophagus intubated without any difficulty and was gradually advanced into the stomach and duodenum and carefully examined. The bulb and second part of the duodenum appeared normal. The scope was then withdrawn into the stomach adequately insufflated with air and upon careful examination the antrum had mild gastritis and biopsies were done from this area. Mucosa of the body, cardia and fundus appeared normal. The scope was then withdrawn into the esophagus. Small hiatal hernia noted. The GE junction was located at 36 cm from the incisors. There was a distal esophageal stricture at the GE junction which was dilated using 20 mm TTS balloon for 60 seconds. There were linear erosions in the esophagus consistent with LA grade B reflux esophagitis. Rest of the esophagus appeared normal. Patient tolerated the procedure well. At this time the patient continued to remain sedation. Initial digital rectal examination was normal. Olympus CF 160 video colonoscope was then inserted into the rectum and gradually advanced to the cecum without any difficulty. Careful examination was performed as the scope was gradually being withdrawn. The prep was excellent. The cecum, ascending colon, transverse colon, descending colon, sigmoid colon and rectum appeared normal. Retroflexion was performed in the rectum and no lesions were noted. Patient tolerated the procedure well. Impression: 1. Upper endoscopy revealed mild antral gastritis, esophageal stricture status post balloon dilation using 20 mm TTS balloon LA grade B reflux esophagitis. 1. Upper endoscopy revealed mild gastritis, small hiatal hernia, distal esophageal stricture status post balloon dilation using 20 mm TTS balloon and LA grade B reflux esophagitisusing 20 mm TTS balloon 2. Colonoscopy was within normal limits with no evidence of colitis or colorectal neoplasia Recommendations: Findings of this examination were discussed with the patient as well as her family. She was advised to follow-up with the biopsy results. She was advised to follow-up with the biopsy results. She was given a prescription for Prilosec 20 mg daily and referred educated about antireflux measures. Recommend repeat screening colonoscopy in 10 years.
[2025-01-09 09:41] VITALS: BP 98/63; PULSE 57
== END 2025-01-09 10:16 | disposition home or self-care (01) ==
LOC: ORWHC2ENDO 07:54
PROVIDERS: ATTEND Internal Medicine Gastroenterology
DX: Z12.11 Encounter for screening for malignant neoplasm of colon (principal); K22.2 Esophageal obstruction; K44.9 Diaphragmatic hernia without obstruction or gangrene; K21.00 Gastro-esophageal reflux disease with esophagitis, without bleeding
CPT/HCPCS: 43239; 43249; J2003; J2704; C1726; G0121

== ENCOUNTER 2025-05-04 15:34 | Emergency (ER) | payer MEDICARE, OTHER ==
--- NOTE | 2025-05-04 17:06 | ED ---
GI Bleed HPI - General Source: patient, RN notes reviewed Mode of arrival: ambulatory Limitations: no limitations - History of Present Illness MD complaint: melena Onset/Timin -: days(s) Severity scale (1-10): 7 Consistency: intermittent Associated Symptoms: abdominal pain, nausea, vomiting Treatments Prior to Arrival: OTC meds <Baldemar Khan - Last Filed: 05/08/25 17:35> <Niru Richter - Last Filed: 05/09/25 20:43> - General Chief complaint: GI Bleed Stated complaint: GI issues Time Seen by Provider: 05/04/25 15:52 - History of Present Illness Initial comments: This is a 70-year-old female with history including breast CA, COPD, GERD and asthma presenting for GI bleed and abdominal pain (7/10) for over 1 month. Patient states she has been vomiting for the past 1 month in 18 days, seeing Dr. Sarmiento who gave her omeprazole, which did not agree with her, and is currently taking pantoprazole, Carafate and meloxicam. Patient endorses having black stool yesterday with associated sweating and chills. Denies fever, chest pain, dyspnea, hematemesis, dysuria, hematuria, vaginal bleeding/discharge. (Baldemar Khan) - Related Data Home Medications Medication Instructions Recorded Confirmed Hydrocodone/Acetaminophen 1 tab PO TID 10/08/14 05/04/25 [Hydrocodone/Acetaminophen 10-325] Simvastatin [Zocor] 20 mg PO DAILY 09/21/19 05/04/25 hydroCHLOROthiazide 50 mg PO DAILY 10/19/23 05/04/25 Gabapentin [Neurontin] 300 mg PO TID 01/07/25 05/04/25 Meloxicam [Mobic] 15 mg PO DAILY 01/07/25 05/04/25 Pantoprazole [Protonix] 40 mg PO DAILY 05/04/25 05/04/25 Previous Rx's Medication Instructions Recorded Famotidine [Pepcid] 20 mg PO BID #28 tablet 05/04/25 Allergies Allergy/AdvReac Type Severity Reaction Status Date / Time cefaclor [From Ceclor] Allergy Severe Rash/Hives Verified 05/04/25 19:11 doxycycline Allergy Severe Rash/Hives Verified 05/04/25 19:11 doxycycline hyclate Allergy Severe Rash/Hives Verified 05/04/25 19:11 [From Vibra-Tabs] fluconazole [From Diflucan] Allergy Severe Swelling Verified 05/04/25 19:11 Penicillins Allergy Severe Anaphylaxis Verified 05/04/25 19:11 Sulfa (Sulfonamide Allergy Severe Anaphylaxis Verified 05/04/25 19:11 Antibiotics) Review of Systems ROS Other: All systems not noted in ROS Statement are negative. <Baldemar Khan - Last Filed: 05/08/25 17:35> ROS Other: All systems not noted in ROS Statement are negative. <Niru Richter Madi - Last Filed: 05/09/25 20:43> ROS Statement: Those systems with pertinent positive or pertinent negative responses have been documented in the HPI. Past Medical History Past Medical History: Asthma, Cancer, COPD, GERD/Reflux, Hyperlipidemia Additional Past Medical History / Comment(s): LT BREAST CANCER DX JUL 2014? PT STATES HAS HAD 33 RADIATION TXS, leaky cardiac valves. History of Any Multi-Drug Resistant Organisms: None Reported Past Surgical History: Bladder Surgery, Breast Surgery, Hernia Repair, Tonsillec les, Tubal Ligation Additional Past Surgical History / Comment(s): LT BREAST BIOPSY/lumpectomy, COLONOSCOPY,EGD Past Anesthesia/Blood Transfusion Reactions: No Reported Reaction Past Psychological History: Anxiety, Depression Smoking Status: Former smoker Past Alcohol Use History: None Reported Past Drug Use History: None Reported - Past Family History Mother Family Medical History: Cancer <Baldemar Khan - Last Filed: 05/08/25 17:35> General Exam Limitations: no limitations General appearance: alert, in no apparent distress Head exam: Present: atraumatic, normocephalic, normal inspection Eye exam: Present: normal appearance, PERRL, EOMI. Absent: scleral icterus, conjunctival injection, periorbital swelling ENT exam: Present: normal exam, mucous membranes moist Neck exam: Present: normal inspection. Absent: tenderness, meningismus, lymphadenopathy Respiratory exam: Present: normal lung sounds bilaterally. Absent: respiratory distress, wheezes, rales, rhonchi, stridor, accessory muscle use Cardiovascular Exam: Present: regular rate, normal rhythm, normal heart sounds. Absent: systolic murmur, diastolic murmur, rubs, gallop, clicks GI/Abdominal exam: Present: soft, tenderness (Positive epigastric, RLQ, LLQ TTP with voluntary guarding. Positive McBurney point, Rovsing sign. Negative Perez sign.), guarding (Voluntary), normal bowel sounds. Absent: distended, rebound, rigid Rectal exam: Present: normal inspection, normal rectal tone, heme (-) stool. Absent: black stool, bloody stool, fecal impaction, hemorrhoids, mass, tenderness Extremities exam: Present: normal inspection, full ROM, normal capillary refill. Absent: tenderness, pedal edema, joint swelling, calf tenderness Back exam: Present: normal inspection Neurological exam: Present: alert, oriented X3, CN II-XII intact Psychiatric exam: Present: normal affect, normal mood Skin exam: Present: warm, dry, intact, normal color. Absent: rash <Baldemar Khan - Last Filed: 05/08/25 17:35> Course Vital Signs 05/04/25 05/04/25 05/04/25 15:41 18:18 20:58 Temperature 97.9 F 97.8 F 97 F L Pulse Rate 62 58 L 62 Respiratory 20 18 17 Rate Blood Pressure 167/115 111/67 127/72 O2 Sat by Pulse 96 98 94 L Oximetry Medical Decision Making - Lab Data Result diagrams: 05/04/25 17:15 05/04/25 17:15 <Baldemar Khan - Last Filed: 05/08/25 17:35> - Lab Data Result diagrams: 05/04/25 17:15 05/04/25 17:15 <Niru Richter - Last Filed: 05/09/25 20:43> - Medical Decision Making Was pt. sent in by a medical professional or institution (Dr. PA, BLOOD BANK LABORATORY TECHNOLOGIST, urgent care, hospital, or fci...) When possible be specific @ -No Did you speak to anyone other than the patient for history (EMS, parent, family, police, friend...)? What history was obtained from this source @ -No Did you review nursing and triage notes (agree or disagree)? Why? @ -I reviewed and agree with nursing and triage notes Were old charts reviewed (outside hosp., previous admission, EMS record, old EKG, old radiological studies, urgent care reports/EKG's, fci records)? Report findings @ -No old charts were reviewed Differential Diagnosis (chest pain, altered mental status, abdominal pain women, abdominal pain men, vaginal bleeding, weakness, fever, dyspnea, syncope, headache, dizziness, GI bleed, back pain, seizure, CVA, palpatations, mental health, musculoskeletal)? @ -Differential GI Bleed: Esophageal varices, aortoenteric fistula, Fior-Wong, gastritis, peptic ulcer disease, diverticulosis, inflammatory bowel disease, hemorrhoids, fissure, colitis, malignancy, Meckel's diverticulum, this is not meant to be an all- inclusive list. EKG interpreted by me (3pts min.). @ -Sinus rhythm with subsequent PAC and LAD. No ST deviation or T wave inversion. Ventricular rate 61 bpm, CAM[place] 205 ms, QRS 94 ms, QTc 426 ms. Repeat ECG: Sinus rhythm with frequent PACs in bigeminal pattern and LAD. No ST deviation or T wave inversion. Ventricular rate 62 bpm, CAMDEN 209 ms, QRS 89 ms, QT QTc 410 ms. X-rays interpreted by me (1pt min.). @ -None done CT interpreted by me (1pt min.). @ -AP CT shows no acute abdomen/pelvic abnormalities or evidence of active upper/lower GI bleed. U/S interpreted by me (1pt. min.). @ -None done What testing was considered but not performed or refused? (CT, X-rays, U/S, labs)? Why? @ -None What meds were considered but not given or refused? Why? @ -None Did you discuss the management of the patient with other professionals (professionals i.e. , PA, BLOOD BANK LABORATORY TECHNOLOGIST, lab, RT, psych nurse, licensed social worker, stage hand, teacher, natural resource officer, gearcase assembler)? Give summary @ -No Was smoking cessation discussed for >3mins.? @ -No Was critical care preformed (if so, how long)? @ -No Were there social determinants of health that impacted care today? How? (Homelessness, low income, unemployed, alcoholism, drug addiction, transportation, low edu. Level, literacy, decrease access to med. care, detention, rehab)? @ -No Was there de-escalation of care discussed even if they declined (Discuss DNR or withdrawal of care, Hospice)? DNR status @ -No What co-morbidities impacted this encounter? (DM, HTN, Smoking, COPD, CAD, Cancer, CVA, ARF, Chemo, Hep., AIDS, mental health diagnosis, sleep apnea, morbid obesity)? @ -None Was patient admitted / discharged? Hospital course, mention meds given and route, prescriptions, significant lab abnormalities, going to OR and other pertinent info. @ -Patient initially provided IV normal saline, Pepcid, Protonix and p.o. viscous lidocaine. Lab work generally unremarkable with stable BUN 43 and bacteriuria. Stool occult blood negative. Lipase 136, normal LFTs and WBC 8.97. Hemoglobin 13.2. AP CT shows no acute abdomen/pelvic abnormalities or evidence of active upper/lower GI bleed. Patient notes some improvement in abdominal pain following medication provided. Pepcid sent to patient's pharmacy. Advised follow-up with PCP/GI for ongoing evaluation and management of abdominal pain and other GI symptoms. Discussed patient with Dr. Richter. Undiagnosed new problem with uncertain prognosis? @ -No Drug Therapy requiring intensive monitoring for toxicity (Heparin, Nitro, Insulin, Cardizem)? @ -No Were any procedures done? @ -No Diagnosis/symptom? @ -Abdominal pain of unknown etiology Acute, or Chronic, or Acute on Chronic? @ -Acute Uncomplicated (without systemic symptoms) or Complicated (systemic symptoms)? @ -Complicated Side effects of treatment? @ -No Exacerbation, Progression, or Severe Exacerbation? @ -No Poses a threat to life or bodily function? How? (Chest pain, [place], [place], pneumonia, PE, COPD, DKA, ARF, appy, cholecystitis, CVA, Diverticulitis, Homicidal, Suicidal, threat to staff... and all critical care pts) @ -No (Baldemar Khan) - Lab Data Lab Results 05/04/25 05/04/25 05/04/25 Range/Units 17:15 17:15 17:15 WBC 8.97 (4.50-10.00) 10*3/uL RBC 4.15 (4.10-5.20) 10*6/uL Hgb 13.2 (12.0-15.0) g/dL Hct 39.7 (37.2-46.3) % MCV 95.7 (80.0-97.0) fL MCH 31.8 (27.0-32.0) pg MCHC 33.2 (32.0-37.0) g/dL Plt Count 234 (140-440) 10*3/uL MPV 11.2 (9.5-12.2) fL Immature Gran % (Auto) 0.2 % Neutrophils % 73.2 % Lymphocytes % 14.9 % Monocytes % 7.0 % Eosinophils % 4.3 % Basophils % 0.4 % Immature Gran # 0.02 (0.00-0.04) 10*3/uL Neutrophils # 6.55 (1.80-7.70) 10*3/uL Lymphocytes # 1.34 (0.90-5.00) 10*3/uL Monocytes # 0.63 (0.20-1.00) 10*3/uL Eosinophils # 0.39 H (0.04-0.35) 10*3/uL Basophils # 0.04 (0.00-0.10) 10*3/uL PT 10.8 (10.0-12.5) sec INR 1.0 (<1.2) APTT 23.6 (22.0-30.0) sec Sodium 139 (137-145) mmol/L Potassium 3.9 (3.5-5.1) mmol/L Chloride 99 (98-107) mmol/L Carbon Dioxide 28 (22-30) mmol/L Anion Gap 12 mmol/L BUN 43 H (7-17) mg/dL Creatinine 0.99 (0.52-1.04) mg/dL Est GFR (CKD-EPI)AfAm 66 (>60 ml/min/1.73 sqM) Est GFR (CKD-EPI)NonAf 57 (>60 ml/min/1.73 sqM) Glucose 104 H (74-99) mg/dL Plasma Lactic Acid Bib (0.7-2.0) mmol/L Calcium 9.9 (8.4-10.2) mg/dL Magnesium 2.2 (1.6-2.3) mg/dL Total Bilirubin 0.4 (0.2-1.3) mg/dL AST 30 (14-36) U/L ALT 20 (4-34) U/L Alkaline Phosphatase 84 (38-126) U/L Total Protein 7.6 (6.3-8.2) g/dL Albumin 4.3 (3.5-5.0) g/dL Lipase 136 (23-300) U/L Urine Color Urine Appearance (Clear) Urine pH (5.0-8.0) Ur Specific [place] (1.001-1.035) Urine Protein (Negative) Urine Glucose (UA) (Negative) Urine Ketones (Negative) Urine Blood (Negative) Urine Nitrite (Negative) Urine Bilirubin (Negative) Urine Urobilinogen (<2.0) mg/dL Ur Leukocyte Esterase (Negative) Urine RBC (0-5) /hpf Urine WBC (0-5) /hpf Ur Squamous Epith Cells (0-4) /hpf Urine Bacteria (None) /hpf Stool Occult Blood (Negative) 05/04/25 05/04/25 05/04/25 Range/Units 17:15 18:00 19:50 WBC (4.50-10.00) 10*3/uL RBC (4.10-5.20) 10*6/uL Hgb (12.0-15.0) g/dL Hct (37.2-46.3) % MCV (80.0-97.0) fL MCH (27.0-32.0) pg MCHC (32.0-37.0) g/dL Plt Count (140-440) 10*3/uL MPV (9.5-12.2) fL Immature Gran % (Auto) % Neutrophils % % Lymphocytes % % Monocytes % % Eosinophils % % Basophils % % Immature Gran # (0.00-0.04) 10*3/uL Neutrophils # (1.80-7.70) 10*3/uL Lymphocytes # (0.90-5.00) 10*3/uL Monocytes # (0.20-1.00) 10*3/uL Eosinophils # (0.04-0.35) 10*3/uL Basophils # (0.00-0.10) 10*3/uL PT (10.0-12.5) sec INR (<1.2) APTT (22.0-30.0) sec Sodium (137-145) mmol/L Potassium (3.5-5.1) mmol/L Chloride (98-107) mmol/L Carbon Dioxide (22-30) mmol/L Anion Gap mmol/L BUN (7-17) mg/dL Creatinine (0.52-1.04) mg/dL Est GFR (CKD-EPI)AfAm (>60 ml/min/1.73 sqM) Est GFR (CKD-EPI)NonAf (>60 ml/min/1.73 sqM) Glucose (74-99) mg/dL Plasma Lactic Acid Bib 0.8 (0.7-2.0) mmol/L Calcium (8.4-10.2) mg/dL Magnesium (1.6-2.3) mg/dL Total Bilirubin (0.2-1.3) mg/dL AST (14-36) U/L ALT (4-34) U/L Alkaline Phosphatase (38-126) U/L Total Protein (6.3-8.2) g/dL Albumin (3.5-5.0) g/dL Lipase (23-300) U/L Urine Color Colorless Urine Appearance Cloudy H (Clear) Urine pH 7.0 (5.0-8.0) Ur Specific [place] 1.013 (1.001-1.035) Urine Protein Negative (Negative) Urine Glucose (UA) Negative (Negative) Urine Ketones Negative (Negative) Urine Blood Negative (Negative) Urine Nitrite Negative (Negative) Urine Bilirubin Negative (Negative) Urine Urobilinogen <2.0 (<2.0) mg/dL Ur Leukocyte Esterase Small H (Negative) Urine RBC <1 (0-5) /hpf Urine WBC 3 (0-5) /hpf Ur Squamous Epith Cells 5 H (0-4) /hpf Urine Bacteria Moderate H (None) /hpf Stool Occult Blood Negative (Negative) Disposition Is patient prescribed a controlled substance at d/c from ED?: No Time of Disposition: 20:43 <Baldemar Khan - Last Filed: 05/08/25 17:35> <Niru Richter - Last Filed: 05/09/25 20:43> Clinical Impression: Abdominal pain of unknown etiology Disposition: HOME SELF-CARE Condition: Fair Instructions (If sedation given, give patient instructions): Gastrointestinal Bleeding (ED), Abdominal Pain (ED) Additional Instructions: Follow-up with PCP/gastroenterology for ongoing management of abdominal pain and black stool. Return to ER if experiencing fever, chills, worsening abdominal pain, dizziness, chest pain, difficulty breathing. Prescriptions: Famotidine [Pepcid] 20 mg PO BID #28 tablet Referrals: Billie Sanchez MD [Primary Care Provider] - 1-2 days Yady Sarmiento MD [STAFF PHYSICIAN] - 1-2 days
[2025-05-04] MEDS: LIDOCAINE VISCOUS 2% 15 ML CUP PO ONE (17:25)
[2025-05-04] MEDS: SODIUM CHLORIDE 0.9% 1,000 ML IV STA (17:25)
[2025-05-04] MEDS: PANTOPRAZOLE 40 MG/10 ML VIAL IVP STA (17:26)
[2025-05-04] MEDS: FAMOTIDINE 20 MG/2 ML VIAL IV STA (17:26)
[2025-05-04 17:33] LABS: Basophils # (A) 0.04 10*3/uL (0.00-0.10); Basophils % (A) 0.4 %; Eosinophils # (A) 0.39 10*3/uL (0.04-0.35); Eosinophils % (A) 4.3 %; HCT 39.7 % (37.2-46.3); HGB 13.2 g/dL (12.0-15.0); Lymphocytes # (A) 1.34 10*3/uL (0.90-5.00); Lymphocytes % (A) 14.9 %; MCH 31.8 pg (27.0-32.0); MCHC 33.2 g/dL (32.0-37.0); MCV 95.7 fL (80.0-97.0); Monocytes # (A) 0.63 10*3/uL (0.20-1.00); Monocytes % (A) 7.0 %; Neutrophils # (A) 6.55 10*3/uL (1.80-7.70); Neutrophils % (A) 73.2 %; Platelet Count 234 10*3/uL (140-440); RBC 4.15 10*6/uL (4.10-5.20); RDW 13.8 % (11.5-14.5); WBC 8.97 10*3/uL (4.50-10.00)
[2025-05-04 18:07] LABS: ALT 20 U/L (4-34); AST 30 U/L (14-36); African American GFR (CKD) 66 (>60 ml/min/1.73 sqM); Albumin 4.3 g/dL (3.5-5.0); Alkaline Phosphatase 84 U/L (38-126); Anion Gap 12 mmol/L; Blood Urea Nitrogen 43 mg/dL (7-17); Calcium 9.9 mg/dL (8.4-10.2); Carbon Dioxide 28 mmol/L (22-30); Chloride 99 mmol/L (98-107); Glucose 104 mg/dL (74-99); Lipase 136 U/L (23-300); Magnesium 2.2 mg/dL (1.6-2.3); Non-African American GFR(CKD) 57 (>60 ml/min/1.73 sqM); Potassium 3.9 mmol/L (3.5-5.1); Sodium 139 mmol/L (137-145); Total Protein 7.6 g/dL (6.3-8.2)
[2025-05-04 18:17] LABS: INR 1.0 (<1.2); Partial Thromboplastin Time 23.6 sec (22.0-30.0); Prothrombin Time 10.8 sec (10.0-12.5)
[2025-05-04 18:25] LABS: Bacteria,Urine Moderate /hpf; Bilirubin,Urine Negative (Negative); Blood,Urine Negative (Negative); Color,Urine Colorless; Glucose,Urine (UA) Negative (Negative); Ketones,Urine Negative (Negative); Leukocyte Esterase,Urine Small (Negative); Nitrite,Urine Negative (Negative); PH, Urine 7.0 (5.0-8.0); Protein,Urine Negative (Negative); RBC,Urine <1 /hpf (0-5); Specific Gravity,Urine 1.013 (1.001-1.035); Squamous Epithelial Cell,Urine 5 /hpf (0-4); Urobilinogen,Urine <2.0 mg/dL (<2.0); WBC,Urine 3 /hpf (0-5)
--- NOTE | 2025-05-04 19:17 | CT ---
EXAMINATION TYPE: CT angio abdomen pelvis DATE OF EXAM: 05/04/2025 6:53 PM COMPARISON: None. CLINICAL INDICATION: Female, 70 years old with history of RLQ/LLQ TTP, melena; PHH, pelvic pain, terrance na, TTP, GI Bleed TECHNIQUE: Multiple thin slice sub-millimeter images were obtained after administration of contrast. 3-D reconstructed images and maximum intensity projection images were obtained. CT angio abdomen pel vis CT Contrast: Contrast used:80 mL of Isovue 300 without and with IV Contrast, Oral contrast used: without Oral Contrast None CT DLP: 2024.2 mGycm, Automated exposure control for dose reduction was used. FINDINGS: Partially visualized lower lungs demonstrates 5 mm pleural-based nodule in the right lower lobe. 3 mm subpleural nodule in the left lower lobe. CTA Abdomen and pelvis: The abdominal aorta does not demonstrate aneurysmal dilatation. Atherosclero tic plaquing is identified within the abdominal aorta. The origins of the superior mesenteric artery , renal arteries, inferior mesenteric artery, and celiac axis are patent. The iliac vessels are norm al in morphology CTA Lower extremities: Right: The common femoral and superficial femoral arteries are patent. The popliteal artery is patent . Anterior and posterior tibial arteries as well as the peroneal artery are patent. Anterior and post erior tibial arteries cross the ankle. Left: The common femoral and superficial femoral arteries are patent. The popliteal artery is patent. Anterior and posterior tibial arteries as well as the peroneal artery are patent. Anterior and poste rior tibial arteries cross the ankle. LOWER CHEST: No evidence of focal consolidation, pneumothorax or pleural effusion. LIVER: Unremarkable GALLBLADDER AND BILE DUCTS: Unremarkable. PANCREAS: Unremarkable. SPLEEN: Unremarkable. ADRENAL GLANDS: Unremarkable. KIDNEYS AND URETERS: No evidence of hydronephrosis or renal calculus. The ureters are unremarkable. PELVIS BLADDER: Unremarkable REPRODUCTIVE: Unremarkable. ABDOMEN & PELVIS STOMACH AND BOWEL: Stomach and duodenum are unremarkable. Post surgical changes at the GE junction. N o evidence of bowel obstruction. PERITONEUM: No evidence of pneumoperitoneum or free fluid. VASCULATURE: No evidence of aortic aneurysm. MUSCULOSKELETAL: No acute osseous abnormalities LYMPH NODES: No gross evidence for lymphadenopathy. SOFT TISSUE/ABDOMINAL WALL: Unremarkable IMPRESSION: No acute abnormality in the abdomen/pelvis. Specifically, no evidence of active upper or lower gastro intestinal bleeding. [facility], Workstation: [id number], 05/04/2025 7:14 PM
[2025-05-04 21:54] VITALS: BP 127/72; PULSE 62; RESP 17; TEMP 97
== END 2025-05-04 21:53 | disposition home or self-care (01) ==
LOC: EC 15:34
DX: R10.9 Unspecified abdominal pain (principal); Z87.891 Personal history of nicotine dependence; Z88.1 Allergy status to other antibiotic agents; Z88.2 Allergy status to sulfonamides; Z88.0 Allergy status to penicillin; Z88.8 Allergy status to other drugs, medicaments and biological substances
CPT/HCPCS: 36415; 93005; 80053; 83605; 83690; 83735; 85025; 85610; 85730; 82272; 81001; 74174; 99285; 96374; 96375; 96361; Q9967; J2470; J1308